=== PATIENT | male | born 1965 | race Caucasian/White ===

== ENCOUNTER 2021-02-04 17:20 | Emergency (ER) | payer OTHER ==
[~2021-02-04] VITALS: Ht 170.2 cm; Wt 107.5 kg
[~2021-02-04 17:20] MED LIST: ATROVENT HFA12.9 GM INH; CIPRO500 MG PO; FLOVENT HFA12 GM INH; NORCO 5-325 TA1 EACH PO; VENTOLIN HFA18 GM IH
[2021-02-04] MEDS ORDERED: NORVASC10 MG PO (17:42)
[2021-02-04] MEDS ORDERED: LIPITOR10 MG PO (17:42)
[2021-02-04] MEDS ORDERED: TUDORZA PRESS400 MCG INH (17:43)
[2021-02-04] MEDS ORDERED: NABUMETONE750 MG PO (17:43)
[2021-02-04] MEDS ORDERED: DOCUPRENE100 MG PO (17:43)
[2021-02-04] MEDS ORDERED: COZAAR100 MG PO (17:44)
[2021-02-04] MEDS ORDERED: ALVESCO6.1 G1 INH (17:44)
== END 2021-02-04 19:56 | disposition home or self-care (01) ==
LOC: ED 17:20
DX: K42.9 Umbilical hernia without obstruction or gangrene (principal); K59.00 Constipation, unspecified; R73.9 Hyperglycemia, unspecified; J45.909 Unspecified asthma, uncomplicated; I10 Essential (primary) hypertension; Z87.891 Personal history of nicotine dependence; Z79.899 Other long term (current) drug therapy
CPT/HCPCS: 74018; 80053; 83690; 85025; 99284-25

== ENCOUNTER 2022-07-30 06:47 | Day surgery (SDC) | payer OTHER ==
[~2022-07-30] VITALS: Ht 170.2 cm; Wt 122.7 kg
[~2022-07-30 06:47] MED LIST changes: +ALDACTONE25 MG PO; +ALVESCO6.1 G1 INH; +AYR SALINE50 ML NAS; +COZAAR100 MG PO; +DOCUPRENE100 MG PO; +INCRUSE ELLI62.5 MCG INH; +LIPITOR10 MG PO; +NABUMETONE750 MG PO; +NORVASC10 MG PO; +TUDORZA PRESS400 MCG INH
[2022-07-30] MEDS ORDERED: METFORMIN HCL1000 M1 PO (07:08)
--- NOTE | 2022-07-30 10:10 | NUR ---
07/30/22 Walter0 Aditi Dill 1006- PT ARRIVES TO PACU NONAROUSABLE TO STIMULI WITH AN OPA IN PLACE. RESP EVEN AND UNLABORED. OXYGEN SAT HIGH 90'S TO 100% ON 10L VIA MASK. PT ALSO NEEDING A JAW THRUST TO MAINTAIN PATENT AIRWAY.
[2022-07-30] MEDS ORDERED: IBUPROFEN600 MG PO (10:24)
[2022-07-30] MEDS ORDERED: ACETAMINOPHEN500 MG PO (10:25)
[2022-07-30] MEDS ORDERED: HYDROCODON-ACE1 EA10 PO (10:25)
--- NOTE | 2022-07-30 10:46 | NUR ---
PT IS BACK TO DS FROM PACU. HE IS ACCOMPIED BY [employer]SPORT OFFIC[facility]. PT DENIES HAVING ANY PAIN AT THIS TIME. HE DOES REQUEST WATER AND PUDDING. NO ADDITIONAL NEEDS OR CONCERNS AT THIS TIME.
--- NOTE | 2022-07-30 11:44 | NUR ---
PT HAS MET ALL DC CRITERIA. REPORT IS CALLED OUT OT [facility]. HE TOLERATES PUDDING AND WATER. HE VOIDS 250MLS. HE IS TAKEN TO TRANSPORT VEHICLE VIA .
--- NOTE | 2022-07-30 17:32 | OR ---
[facility] [address], [place] [address] Signed DATE OF OPERATION: 07/30/2022 SURGEON: Sharon Weller MD PREOPERATIVE DIAGNOSIS: Incarcerated umbilical hernia without strangulation. POSTOPERATIVE DIAGNOSIS: Incarcerated umbilical hernia without strangulation (properitoneal fat herniation, defect size 3 cm). PROCEDURE: Repair of umbilical hernia including implantation of Prolene mesh underlay technique with reapproximation of fascia transversely. ANESTHESIA: General, LMA; Sharon Moreno CRNA and local 20 mL of 0.25% Marcaine with epinephrine. INDICATIONS: This 57-year-old white man is a prisoner at [facility]. He was referred by Michael Griggs for consideration of a non-reducible painful hernia at the umbilicus. The pain at the hernia is worse with lifting or exertion in any way. A non-reducible umbilical hernia is noted. He is admitted at this time to undergo repair of the hernia. He understands the risks of bleeding, infection, recurrence, and so on. FINDINGS: Herniated properitoneal fat was noted. The fascial defect was 3 cm. Implantation of Prolene mesh in an underlay technique was accomplished with reapproximation of the fascia transversely. DESCRIPTION OF PROCEDURE: The patient was brought to the operating room, given a general LMA type anesthetic. Preoperative antibiotic Ancef was given. Sequential compression device stockings used and heparin subcutaneously administered. The abdomen was clipped and prepared with a chlorhexidine solution and draped sterilely. A curvilinear incision was made lateral to the protruding soft tissue at the umbilicus. Dissection was carried through the dermis with sharp electrocautery dissection isolating well the herniated tissue. The dermis over the hernia was freed, preserving its vascularity. It appeared that the herniated viscus was properitoneal fat. The hernia sac was incised allowing for evaluation of its contents confirming herniated properitoneal fat. This was returned to the properitoneal Electronically Signed By: SHARON WELLER MD 07/30/22 1732 PATIENT NAME: CHRISTINA BOWDEN OPERATIVE REPORT DATE OF : 67 REPORT #: [id number] PHYSICIAN: SHARON WELLER MD PCP: MICHAEL GRIGGS FINANCIAL SPECIALIST REPORT IS CONFIDENTIAL AND NOT TO BE RELEASED WITHOUT AUTHORIZATION [facility] [address] [place] [id number] Signed space. The hernia sac was amputated. The properitoneal space was developed with blunt dissection. A circular piece of Prolene mesh was secured to the properitoneal space with interrupted 0-Prolene suture. The defect was no more than 3 cm total. The fascia was reapproximated transversely with interrupted horizontal mattress Prolene. A 20 mL of 0.25% Marcaine with epinephrine was injected locally. The wound was closed in layers of interrupted 2-0 Vicryl and running subcuticular 3-0 Vicryl for the skin. Steri-Strips were applied as was Acticoat dressing. He tolerated the procedure well. BLOOD LOSS: Minimal. COMPLICATIONS: None. MD VICTORIA Solares/SHANA /[id number] cc: Michael Griggs [facility] Copies: ~ Electronically Signed By: SHARON WELLER MD 07/30/22 1732 PATIENT NAME: DENNISECHRISTINA OPERATIVE REPORT DATE OF : 67 REPORT #: [id number] PHYSICIAN: SHARON WELLER MD PCP: MICHAEL GRIGGS [facility] REPORT IS CONFIDENTIAL AND NOT TO BE RELEASED WITHOUT AUTHORIZATION
== END 2022-07-30 11:40 | disposition home or self-care (01) ==
LOC: DS 06:47
PROVIDERS: ATTEND Surgery
PROC: 0WUF0JZ Supplement Abdominal Wall with Synthetic Substitute, Open Approach (ICD-10-PCS; principal; 2022-07-30 09:00)
DX: K42.0 Umbilical hernia with obstruction, without gangrene (principal); I10 Essential (primary) hypertension; J45.909 Unspecified asthma, uncomplicated; E11.9 Type 2 diabetes mellitus without complications; Z79.899 Other long term (current) drug therapy; Z79.84 Long term (current) use of oral hypoglycemic drugs
CPT/HCPCS: 00750; C1781; J0330; J0690; J1100; J1644; J1885; J2250; J2405; J2704; J2765; J3010; J7121

== ENCOUNTER 2025-06-17 17:15 | Emergency (ER) | payer OTHER ==
[~2025-06-17] VITALS: Ht 172.7 cm; Wt 103.7 kg
[~2025-06-17 17:15] MED LIST changes: +ACETAMINOPHEN500 MG PO; +HYDROCODON-ACE1 EA10 PO; +IBUPROFEN600 MG PO; +METFORMIN HCL1000 M1 PO
--- OUTSIDE RECORDS SUMMARY | 2025-06-17 17:23 | XMS ---
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 Sayda has no Care Guidelines for this patient. [facility] (12 MO.) [facility] NOTE: Visits indicate total known visits. ED[facility] (12 MO.) [facility] COMPLAINT: - EYE IS BURNING 06/12/2025 10:[address] [facility] [place] TYPE: Emergency COMPLAINT: - RT SIDED NUMBNESS DIAGNOSES: - Anesthesia of skin - Essential (primary) hypertension - Hyperlipidemia, unspecified - alf (current) use of oral hypoglycemic drugs - Other intermediate manager (current) drug therapy - Other visual disturbances - Personal history of nicotine dependence - Type 2 diabetes mellitus without complications - Unspecified asthma, uncomplicated INPATIENT VISIT TRACKING (12 MO.) No inpatient visits to display in this time frame [email or web address]
[2025-06-17] MEDS ORDERED: VOLTAREN ARTHRI20 GM TOP (19:55)
[2025-06-17] MEDS ORDERED: ZESTRIL20 MG PO (19:56)
[2025-06-17] MEDS ORDERED: VITAMIN B-121000 MC3 PO (19:56)
[2025-06-17] MEDS ORDERED: PRILOSEC OTC20 MG PO (19:56)
[2025-06-17] MEDS ORDERED: VITAMIN D325 MCG PO (19:57)
[2025-06-17] MEDS ORDERED: PREDNISONE20 MG PO (19:57)
[2025-06-17] MEDS ORDERED: TETRACAINE HCL 0.5% 4 ML BTL OU SCH (20:30)
[2025-06-17 21:04] VITALS: BP 158/65
== END 2025-06-17 21:05 | disposition home or self-care (01) ==
LOC: ED 17:15
DX: H33.21 Serous retinal detachment, right eye (principal); J45.909 Unspecified asthma, uncomplicated; I10 Essential (primary) hypertension; E11.9 Type 2 diabetes mellitus without complications; Z87.891 Personal history of nicotine dependence; Z79.899 Other long term (current) drug therapy; Z79.84 Long term (current) use of oral hypoglycemic drugs
CPT/HCPCS: 99284